=== PATIENT | female | born 1935 | race Caucasian/White ===

== ENCOUNTER 2016-08-15 04:11 | Inpatient (IN) | payer OTHER ==
[~2016-08-15] VITALS: Ht 167.6 cm; Wt 57.0 kg
[~2016-08-15 04:11] MED LIST: CARB200T4 PO; DILT180C10 PO; FER325T PO; GLYB5TAB8 PO; LISI-287 PO; LOVA40TA72 PO; MELO-86 PO
[2016-08-15 06:45] LABS: Basophils # (auto) 0 uL; Basophils % (auto) 0.4 % (0.0-2.0); DEFINITIVE VIEW TRANSMISSION; Eosinophils # (auto) 0 uL; Eosinophils % (auto) 0.2 % (0.0-7.0); Hematocrit 27.7 % (36.0-46.0); Hemoglobin 8.7 g/dL (12.2-16.2); Lymphocytes # (auto) 0.4 uL; Lymphocytes % (auto) 5.2 % (10.0-50.0); Mean Corpuscular Hemoglobin 22.8 pg (28.0-32.0); Mean Corpuscular Hgb Conc. 31.2 g/dL (32.0-36.0); Mean Corpuscular Volume 73.2 fL (80.0-100.0); Mean Platelet Volume 8.6 fL (7.4-10.4); Monocytes # (auto) 0.5 uL; Monocytes % (auto) 6.9 % (0.0-12.0); Neutrophils # (auto) 6.9 uL; Neutrophils % (auto) 87.3 % (37.0-80.0); Platelet Count (auto) 265 10^3/uL (140-450); Red Cell Distribution Width 18.8 % (11.6-16.0); White Blood Cell 7.9 10^3/uL (4.4-10.8)
[2016-08-15 06:57] LABS: INR 1.08 (0.9-1.15); Partial Thromboplastin Time 23.7 sec (22.64-33.71); Prothrombin Time 11.1 sec (9.37-12.3)
[2016-08-15 07:06] LABS: Albumin 3.5 g/dL (3.4-5.0); BUN/Creatinine Ratio 25.8; Potassium 3.7 mmol/L (3.5-5.1)
[2016-08-15 07:23] LABS: Bilirubin, Total 0.2 mg/dL (0.2-1.0); Total Protein 7.3 g/dL (6.4-8.2)
[2016-08-15 07:53] LABS: B-Type Natriuretic Peptide 345.64 pg/mL (0-100)
[2016-08-15] MEDS ORDERED: ALBUTEROL SULF 2.5 MG/0.5ML(0.5%) NEB SOLN NEB PRN (08:45)
[2016-08-15] MEDS ORDERED: NITROGLYCERIN 0.4 MG SL TAB SL PRN (08:45)
[2016-08-15] MEDS ORDERED: LORazepam 0.5 MG TAB PO PRN (08:45)
[2016-08-15] MEDS ORDERED: PROMETHAZINE HCL 25 MG/ML 1ML IV PRN (08:45)
[2016-08-15] MEDS ORDERED: ACETAMINOPHEN 500 MG TAB PO PRN (08:45)
[2016-08-15] MEDS ORDERED: HYDROcodone-ACET 5/325MG TAB PO PRN (08:45)
[2016-08-15] MEDS ORDERED: TEMAZEPAM 15 MG CAP PO PRN (08:45)
[2016-08-15] MEDS ORDERED: LACTULOSE 20Gm/30ML SOLN PO PRN ×2 (08:45)
[2016-08-15] MEDS ORDERED: DEXTROSE (50%) 50ML SYRG IV PRN (08:45)
[2016-08-15] MEDS ORDERED: OSELTAMIVIR 75 MG CAP PO ONE (08:45)
[2016-08-15] MEDS: cefTRIAXone 1GM/50ML D5W 50 ML IV SCH (09:11)
[2016-08-15] MEDS: carBAMazepine 200 MG TAB PO SCH ×3 (09:14→21:35)
[2016-08-15] MEDS ORDERED: ASPI-378 PO (09:19)
[2016-08-15] MEDS ORDERED: OXY5T PO (09:19)
[2016-08-15] MEDS: DILTIAZEM HCL 180MG ER CAP PO SCH (09:26)
[2016-08-15] MEDS: CARVEDILOL 3.125 MG TAB PO SCH ×2 (09:27→21:35)
[2016-08-15] MEDS: ENALAPRIL MALEATE 2.5 MG TAB PO SCH (09:28)
[2016-08-15] MEDS: FERROUS SULFATE 325 MG TAB PO SCH ×2 (09:39→21:34)
[2016-08-15] MEDS: FUROSEMIDE 40 MG/4 ML VIAL IV SCH (09:39)
[2016-08-15] MEDS: ASPirin 81 mg TAB PO SCH (09:40)
[2016-08-15] MEDS: POTASSIUM CHL 20 Meq TABLET PO SCH (09:40)
[2016-08-15] MEDS: glyBURIDE 5 MG TAB PO SCH (09:44)
[2016-08-15] MEDS: AZITHROMYCIN 500MG/D5W 250ML 250 ML IV SCH (09:59)
[2016-08-15] MEDS: NITROGLYCERIN 0.2MG/HR TOPICAL PATCH TD SCH (10:00)
[2016-08-15] MEDS: OSELTAMIVIR 75 MG CAP PO SCH ×2 (10:00→21:35)
[2016-08-15] MEDS ORDERED: PATIENTS OWN MEDICATION (Lisinopril & Hydrochlorothiazi (Lisinopril/Hydrochlorothi) 1 TAB) PO SCH (10:00)
[2016-08-15] MEDS ORDERED: ENOXAPARIN SOD 80 MG/0.8ML SYRINGE SC SCH (10:00)
[2016-08-15] MEDS ORDERED: ASPirin 81 mg TAB PO SCH (10:00)
[2016-08-15] MEDS: IPRATROPIUM BROM 0.5 MG/2.5ML INH SOL NEB SCH (12:00)
[2016-08-15] MEDS: ALBUTEROL SULF 2.5 MG/0.5ML(0.5%) NEB SOLN NEB SCH (12:00)
[2016-08-15] MEDS: InsuLIN REG 1unit/0.01ml Soln (100units/ml) SC SCH ×3 (12:52→21:47)
[2016-08-15] MEDS: ACCU-CHEK COMFORT CURVE STRIP VI SCH ×3 (12:52→21:41)
[2016-08-15 15:20] VITALS: BP 107/57
[2016-08-15 15:43] VITALS: BP_SYST 107; BP_SYST 117; BP_DIAS 57; BP_DIAS 77
[2016-08-15 15:53] VITALS: BP 117/61
[2016-08-15 20:00] VITALS: BP 136/62
[2016-08-15] MEDS: ATORVASTATIN 20 MG TAB PO SCH (21:35)
[2016-08-15] MEDS ORDERED: ENOXAPARIN SOD 80 MG/0.8ML SYRINGE SC ONE (22:00)
[2016-08-15] MEDS ORDERED: LOVASTATIN 80 MG PO SCH (22:00)
[2016-08-16] VITALS (8 sets, daily range): BP systolic 100–146; BP diastolic 48–71
[2016-08-16] MEDS: ALBUTEROL SULF 2.5 MG/0.5ML(0.5%) NEB SOLN NEB SCH ×4 (01:00→18:30)
[2016-08-16] MEDS: IPRATROPIUM BROM 0.5 MG/2.5ML INH SOL NEB SCH ×4 (01:00→18:30)
[2016-08-16 05:03] LABS: Basophils # (auto) 0 uL; Basophils % (auto) 0.7 % (0.0-2.0); DEFINITIVE VIEW TRANSMISSION; Eosinophils # (auto) 0.1 uL; Eosinophils % (auto) 1.8 % (0.0-7.0); Hematocrit 29.5 % (36.0-46.0); Hemoglobin 9.4 g/dL (12.2-16.2); Lymphocytes # (auto) 1.7 uL; Lymphocytes % (auto) 27.1 % (10.0-50.0); Mean Corpuscular Hemoglobin 23.6 pg (28.0-32.0); Mean Corpuscular Hgb Conc. 31.8 g/dL (32.0-36.0); Mean Corpuscular Volume 74.4 fL (80.0-100.0); Mean Platelet Volume 8.4 fL (7.4-10.4); Monocytes # (auto) 0.6 uL; Monocytes % (auto) 10.1 % (0.0-12.0); Neutrophils # (auto) 3.8 uL; Neutrophils % (auto) 60.3 % (37.0-80.0); Platelet Count (auto) 264 10^3/uL (140-450); Red Cell Distribution Width 18.9 % (11.6-16.0); White Blood Cell 6.3 10^3/uL (4.4-10.8)
[2016-08-16 05:32] LABS: Albumin 3.2 g/dL (3.4-5.0); BUN/Creatinine Ratio 45.8; Bilirubin, Total 0.3 mg/dL (0.2-1.0); Calcium 8.2 mg/dL (8.5-10.1); Potassium 4.5 mmol/L (3.5-5.1); Total Protein 6.6 g/dL (6.4-8.2)
[2016-08-16] MEDS: carBAMazepine 200 MG TAB PO SCH ×2 (06:00→13:28)
[2016-08-16] MEDS ORDERED: LIDOCAINE 2%HCL (LOCAL ANESTH.) INJ 20ML MDV ONE (06:08)
[2016-08-16] MEDS ORDERED: IODIXANOL 320MG/ML 100ML BTL IV ONE (06:08)
[2016-08-16] MEDS: ACCU-CHEK COMFORT CURVE STRIP VI SCH ×4 (06:34→22:17)
[2016-08-16] MEDS: InsuLIN REG 1unit/0.01ml Soln (100units/ml) SC SCH ×4 (06:35→22:00)
[2016-08-16 06:36] LABS: B-Type Natriuretic Peptide 676.1 pg/mL (0-100)
[2016-08-16] MEDS ORDERED: ANGIOMAX 250 MG VIAL IV ONE (06:54)
[2016-08-16] MEDS ORDERED: fentaNYL CITRATE 100 MCG/2 ML VL ONE (06:55)
[2016-08-16] MEDS ORDERED: SODIUM CHL 0.9% 0 ML ONE (06:55)
[2016-08-16] MEDS ORDERED: MIDAZOLAM HCL 1MG/1ML-2 ML VIAL ONE (06:55)
[2016-08-16] MEDS ORDERED: CLOPIDOGREL 300 MG TAB PO ONE (08:00)
[2016-08-16] MEDS: cefTRIAXone 1GM/50ML D5W 50 ML IV SCH (09:00)
[2016-08-16] MEDS: OSELTAMIVIR 75 MG CAP PO SCH (10:00)
[2016-08-16] MEDS: glyBURIDE 5 MG TAB PO SCH (10:17)
[2016-08-16] MEDS: NITROGLYCERIN 0.2MG/HR TOPICAL PATCH TD SCH (10:17)
[2016-08-16] MEDS: FUROSEMIDE 40 MG/4 ML VIAL IV SCH (10:17)
[2016-08-16] MEDS: ASPirin 81 mg TAB PO SCH (10:18)
[2016-08-16] MEDS: POTASSIUM CHL 20 Meq TABLET PO SCH (10:18)
[2016-08-16] MEDS: ENALAPRIL MALEATE 2.5 MG TAB PO SCH (10:18)
[2016-08-16] MEDS: FERROUS SULFATE 325 MG TAB PO SCH ×2 (10:18→21:15)
[2016-08-16] MEDS: CLOPIDOGREL BISULFATE 75 MG TAB PO SCH (10:18)
[2016-08-16] MEDS: AZITHROMYCIN 500MG/D5W 250ML 250 ML IV SCH (10:19)
[2016-08-16] MEDS: DILTIAZEM HCL 180MG ER CAP PO SCH (10:19)
[2016-08-16] MEDS: CARVEDILOL 3.125 MG TAB PO SCH ×2 (10:19→21:15)
[2016-08-16] MEDS: ATORVASTATIN 20 MG TAB PO SCH (21:14)
[2016-08-17] VITALS (9 sets, daily range): BP systolic 92–135; BP diastolic 36–95
[2016-08-17] MEDS: IPRATROPIUM BROM 0.5 MG/2.5ML INH SOL NEB SCH ×4 (01:10→18:56)
[2016-08-17] MEDS: ALBUTEROL SULF 2.5 MG/0.5ML(0.5%) NEB SOLN NEB SCH ×4 (01:10→18:56)
[2016-08-17] MEDS: InsuLIN REG 1unit/0.01ml Soln (100units/ml) SC SCH ×4 (06:17→23:22)
[2016-08-17] MEDS: ACCU-CHEK COMFORT CURVE STRIP VI SCH ×4 (06:18→21:53)
[2016-08-17] MEDS: cefTRIAXone 1GM/50ML D5W 50 ML IV SCH (08:54)
[2016-08-17] MEDS ORDERED: LIDOCAINE 2%HCL (LOCAL ANESTH.) INJ 20ML MDV ONE (09:35)
[2016-08-17] MEDS ORDERED: IOHEXOL 350 MG/ML 100ML IJ ONE (09:35)
[2016-08-17] MEDS: POTASSIUM CHL 20 Meq TABLET PO SCH (10:00)
[2016-08-17] MEDS: NITROGLYCERIN 0.2MG/HR TOPICAL PATCH TD SCH (10:00)
[2016-08-17] MEDS: FERROUS SULFATE 325 MG TAB PO SCH ×2 (10:00→21:52)
[2016-08-17] MEDS: FUROSEMIDE 40 MG/4 ML VIAL IV SCH (10:00)
[2016-08-17] MEDS: ENALAPRIL MALEATE 2.5 MG TAB PO SCH (10:00)
[2016-08-17] MEDS: ASPirin 81 mg TAB PO SCH (10:30)
[2016-08-17] MEDS: AZITHROMYCIN 500MG/D5W 250ML 250 ML IV SCH (10:30)
[2016-08-17] MEDS: CARVEDILOL 3.125 MG TAB PO SCH ×2 (10:31→21:52)
[2016-08-17] MEDS: CLOPIDOGREL BISULFATE 75 MG TAB PO SCH (10:31)
[2016-08-17] MEDS: DILTIAZEM HCL 180MG ER CAP PO SCH (10:31)
[2016-08-17] MEDS ORDERED: fentaNYL CITRATE 100 MCG/2 ML VL ONE (12:52)
[2016-08-17] MEDS ORDERED: MIDAZOLAM HCL 1MG/1ML-2 ML VIAL ONE (12:52)
[2016-08-17] MEDS ORDERED: SODIUM CHL 0.9% 50 ML ONE (12:53)
[2016-08-17] MEDS ORDERED: ANGIOMAX 250 MG VIAL IV ONE (12:53)
[2016-08-17] MEDS ORDERED: CLOPIDOGREL BISULFATE 75 MG TAB PO ONE (14:30)
[2016-08-17] MEDS ORDERED: SODIUM CHLORIDE 0.9% 1,000 ML IV SCH (14:38)
[2016-08-17] MEDS: ATORVASTATIN 20 MG TAB PO SCH (21:52)
[2016-08-18] VITALS (9 sets, daily range): BP systolic 115–170; BP diastolic 55–71
[2016-08-18] MEDS: IPRATROPIUM BROM 0.5 MG/2.5ML INH SOL NEB SCH ×3 (00:06→18:35)
[2016-08-18] MEDS: ALBUTEROL SULF 2.5 MG/0.5ML(0.5%) NEB SOLN NEB SCH ×3 (00:06→18:35)
[2016-08-18] MEDS: ACCU-CHEK COMFORT CURVE STRIP VI SCH ×4 (06:25→21:51)
[2016-08-18] MEDS: InsuLIN REG 1unit/0.01ml Soln (100units/ml) SC SCH ×4 (06:25→23:12)
[2016-08-18] MEDS: cefTRIAXone 1GM/50ML D5W 50 ML IV SCH (08:43)
[2016-08-18] MEDS: FUROSEMIDE 40 MG/4 ML VIAL IV SCH (10:34)
[2016-08-18] MEDS: ASPirin 81 mg TAB PO SCH (10:35)
[2016-08-18] MEDS: FERROUS SULFATE 325 MG TAB PO SCH ×2 (10:35→21:49)
[2016-08-18] MEDS: AZITHROMYCIN 500MG/D5W 250ML 250 ML IV SCH (10:35)
[2016-08-18] MEDS: DILTIAZEM HCL 180MG ER CAP PO SCH (10:35)
[2016-08-18] MEDS: CARVEDILOL 3.125 MG TAB PO SCH ×2 (10:42→21:50)
[2016-08-18] MEDS: POTASSIUM CHL 20 Meq TABLET PO SCH (10:42)
[2016-08-18] MEDS: CLOPIDOGREL BISULFATE 75 MG TAB PO SCH (10:42)
[2016-08-18] MEDS: NITROGLYCERIN 0.2MG/HR TOPICAL PATCH TD SCH (10:43)
[2016-08-18] MEDS: ENALAPRIL MALEATE 2.5 MG TAB PO SCH (12:00)
[2016-08-18] MEDS ORDERED: ENA2.5T PO (12:38)
[2016-08-18] MEDS ORDERED: FURO40TA PO (12:38)
[2016-08-18] MEDS ORDERED: CLOP75TA28 PO (12:38)
[2016-08-18] MEDS ORDERED: CAR3125T PO (12:38)
[2016-08-18] MEDS ORDERED: ALBUAER3 IN (13:30)
[2016-08-18] MEDS: ATORVASTATIN 20 MG TAB PO SCH (21:49)
[2016-08-19] VITALS: BP 140/57
[2016-08-19] MEDS: IPRATROPIUM BROM 0.5 MG/2.5ML INH SOL NEB SCH ×3 (00:20→12:00)
[2016-08-19] MEDS: ALBUTEROL SULF 2.5 MG/0.5ML(0.5%) NEB SOLN NEB SCH ×3 (00:20→12:00)
[2016-08-19 04:00] VITALS: BP 134/62
[2016-08-19] MEDS: ACCU-CHEK COMFORT CURVE STRIP VI SCH ×2 (06:10→11:54)
[2016-08-19] MEDS: InsuLIN REG 1unit/0.01ml Soln (100units/ml) SC SCH ×2 (06:12→12:12)
[2016-08-19 06:25] VITALS: BP 134/62
[2016-08-19 08:00] VITALS: BP 139/64
[2016-08-19] MEDS: cefTRIAXone 1GM/50ML D5W 50 ML IV SCH (08:38)
[2016-08-19] MEDS: NITROGLYCERIN 0.2MG/HR TOPICAL PATCH TD SCH (09:36)
[2016-08-19] MEDS: FUROSEMIDE 40 MG/4 ML VIAL IV SCH (09:36)
[2016-08-19] MEDS: AZITHROMYCIN 500MG/D5W 250ML 250 ML IV SCH (09:36)
[2016-08-19] MEDS: ASPirin 81 mg TAB PO SCH (09:37)
[2016-08-19] MEDS: CARVEDILOL 3.125 MG TAB PO SCH (09:37)
[2016-08-19] MEDS: POTASSIUM CHL 20 Meq TABLET PO SCH (09:37)
[2016-08-19] MEDS: CLOPIDOGREL BISULFATE 75 MG TAB PO SCH (09:37)
[2016-08-19] MEDS: FERROUS SULFATE 325 MG TAB PO SCH (09:37)
[2016-08-19] MEDS: DILTIAZEM HCL 180MG ER CAP PO SCH (09:38)
[2016-08-19] MEDS: ENALAPRIL MALEATE 2.5 MG TAB PO SCH (09:38)
[2016-08-19 12:00] VITALS: BP 115/55
== END 2016-08-19 14:58 | disposition home health service (06) | DRG 246 ==
LOC: ER 04:11 → TELE 04:12 → DOU IN ICU 14:28
PROVIDERS: ADMIT Internal Medicine; ATTEND Internal Medicine
PROC: B41J1ZZ Fluoroscopy of Other Lower Arteries using Low Osmolar Contrast (ICD-10-PCS; 2016-08-16)
PROC: 4A023N7 Measurement of Cardiac Sampling and Pressure, Left Heart, Percutaneous Approach (ICD-10-PCS; 2016-08-16)
PROC: B41F1ZZ Fluoroscopy of Right Lower Extremity Arteries using Low Osmolar Contrast (ICD-10-PCS; 2016-08-16)
PROC: 027135Z Dilation of Coronary Artery, Two Arteries with Two Drug-eluting Intraluminal Devices, Percutaneous Approach (ICD-10-PCS; principal; 2016-08-17)
PROC: 30233N1 Transfusion of Nonautologous Red Blood Cells into Peripheral Vein, Percutaneous Approach (ICD-10-PCS; 2016-08-17)
DX: I21.4 Non-ST elevation (NSTEMI) myocardial infarction (principal); J18.9 Pneumonia, unspecified organism; I50.23 Acute on chronic systolic (congestive) heart failure; I42.9 Cardiomyopathy, unspecified; J44.0 Chronic obstructive pulmonary disease with (acute) lower respiratory infection; E78.5 Hyperlipidemia, unspecified; E11.65 Type 2 diabetes mellitus with hyperglycemia; D50.9 Iron deficiency anemia, unspecified; E11.51 Type 2 diabetes mellitus with diabetic peripheral angiopathy without gangrene; F17.210 Nicotine dependence, cigarettes, uncomplicated; I08.1 Rheumatic disorders of both mitral and tricuspid valves; I11.0 Hypertensive heart disease with heart failure; I25.10 Atherosclerotic heart disease of native coronary artery without angina pectoris; Z85.819 Personal history of malignant neoplasm of unspecified site of lip, oral cavity, and pharynx; Z88.5 Allergy status to narcotic agent; Z79.82 Long term (current) use of aspirin; Z79.899 Other long term (current) drug therapy; Z80.9 Family history of malignant neoplasm, unspecified; Z85.89 Personal history of malignant neoplasm of other organs and systems
CPT/HCPCS: 36415; 36430; 36600; 71010; 80053; 80061; 82550; 82805; 82962; 83036; 83880; 84443; 84484; 85025; 85610; 85652; 85730; 86141; 86850; 86900; 86901; 86920; 87040; 87081; 87400; 92928; 93005; 93306; 93458; 94640; 96372; 99152; C1874; J0696; J1815; J2250; Q9967